=== PATIENT | male | born 1975 | race American Indian/Alaskan Native ===

== ENCOUNTER 2017-11-22 02:10 | Emergency (ER) | payer SELFPAY ==
[2017-11-22 03:20] VITALS: BP 149/108
--- NOTE | 2017-11-22 04:12 | XRay Report ---
FINAL REPORT EXAM: XR HAND 3+V LT HISTORY: trauma TECHNIQUE: Three views of the left hand were submitted. FINDINGS: There is no evidence of acute fracture or dislocation. There is soft tissue swelling around the proximal interphalangeal joint of the 4th finger. There is soft tissue fullness overlying the dorsal aspect of the metacarpals. There is no evidence of radiopaque foreign body. IMPRESSION: Soft tissue swelling as described. No evidence of localized fracture or dislocation.
[2017-11-22] MEDS ORDERED: MOTRIN PO ONE (09:10)
[2017-11-22] MEDS ORDERED: NORCO 5/325 PO ONE (09:11)
[2017-11-22] MEDS ORDERED: BOOSTRIX IM ONE (09:24)
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
== END 2017-11-22 10:08 | disposition home or self-care (01) ==
LOC: ED 02:10
DX: S60.222A Contusion of left hand, initial encounter (principal); S63.92XA Sprain of unspecified part of left wrist and hand, initial encounter; S60.512A Abrasion of left hand, initial encounter; E11.9 Type 2 diabetes mellitus without complications; J45.909 Unspecified asthma, uncomplicated; F17.200 Nicotine dependence, unspecified, uncomplicated; W22.8XXA Striking against or struck by other objects, initial encounter; Y93.89 Activity, other specified; Y92.89 Other specified places as the place of occurrence of the external cause; Y99.8 Other external cause status
CPT/HCPCS: 90471; 90715; 99283